=== PATIENT | male | born 1970 | race Caucasian/White ===

== ENCOUNTER 2017-01-14 18:31 | Observation (INO) | payer OTHER ==
[~2017-01-14] VITALS: Ht 180.3 cm; Wt 108.4 kg
[2017-01-14] MEDS ORDERED: GLUCOTROL10 MG PO (20:25)
[2017-01-14] MEDS ORDERED: NORCO 325-5 MG1 TAB PO (20:26)
[2017-01-14] MEDS ORDERED: PRINIVIL20 MG PO (20:26)
[2017-01-14] MEDS ORDERED: INVOKANA100 MG PO (20:26)
[2017-01-14] MEDS ORDERED: GLUCOPHAGE1000 MG PO (20:27)
[2017-01-14] MEDS ORDERED: MOBIC15 MG PO (20:27)
[2017-01-14] MEDS ORDERED: CRESTOR10 MG PO (20:28)
[2017-01-14] MEDS ORDERED: ULTRAM50 MG PO (20:30)
[2017-07-13] MEDS ORDERED: JARDIANCE10 MG PO (03:40)
[2017-07-13] MEDS ORDERED: MEVACOR20 MG PO (04:39)
== END 2017-01-15 20:06 | disposition short-term general hospital (02) ==
LOC: ER 18:31 → RAD 18:32 → ER 18:32 → IP 20:40 → OBS 20:40 → IP 01-15 20:06
PROVIDERS: ADMIT Family Medicine
DX: M54.2 Cervicalgia (principal); M25.511 Pain in right shoulder; R90.82 White matter disease, unspecified; R51 Headache; S02.5XXA Fracture of tooth (traumatic), initial encounter for closed fracture; E11.9 Type 2 diabetes mellitus without complications; I10 Essential (primary) hypertension; E78.5 Hyperlipidemia, unspecified; V43.52XA Car driver injured in collision with other type car in traffic accident, initial encounter; Y92.411 Interstate highway as the place of occurrence of the external cause; Z87.891 Personal history of nicotine dependence; Z80.1 Family history of malignant neoplasm of trachea, bronchus and lung; Z83.3 Family history of diabetes mellitus; Z82.49 Family history of ischemic heart disease and other diseases of the circulatory system; Z79.84 Long term (current) use of oral hypoglycemic drugs; Z79.899 Other long term (current) drug therapy; Z98.890 Other specified postprocedural states
CPT/HCPCS: G0378; G0480; J1885